=== PATIENT | male | born 1960 | race Caucasian/White ===

== ENCOUNTER → 2016-07-18 | Outpatient (CLI) | payer OTHER ==
[~2016-07-18] MED LIST: ALLEGRA-D 12 H1 EACH PO; FLONASE16 GM NASBOTH; MOBIC15 MG PO; PRILOSEC20 MG PO; SUDAFED30 MG PO; VALTREX500 MG PO
== END | disposition short-term general hospital (02) ==
LOC: CLSURG 09:47
DX: K40.90 Unilateral inguinal hernia, without obstruction or gangrene, not specified as recurrent (principal)

== ENCOUNTER → 2016-08-08 | Outpatient (CLI) | payer OTHER | END | disposition short-term general hospital (02) | LOC: CLSURG 08:05 | DX: Z48.815 Encounter for surgical aftercare following surgery on the digestive system (principal); Z87.19 Personal history of other diseases of the digestive system ==